=== PATIENT | female | born 1960 | race Caucasian/White ===

== ENCOUNTER 2018-03-18 15:34 | Emergency (ER) | payer OTHER ==
[~2018-03-18] VITALS: Ht 157.5 cm; Wt 74.8 kg
[~2018-03-18 15:34] MED LIST: ADVAIR 100-501 EACH INH; AUGMENTIN 875875 M1 PO; BIRTH CONTROL PO; COLACE100 MG PO; CYMBALTA; CYMBALTA PO; CYMBALTA60 MG PO; IBUPROFEN 800800 M1 PO; LEVOTHROID PO; OMNARIS; OMNARIS NS; VICODIN 5-5001 EACH PO; YAZ; YAZ PO; [UNRECOGNIZED DRUG - OTHER]
[2018-03-18] MEDS ORDERED: BRINTELLIX10 MG PO (15:42)
[2018-03-18 16:39] LABS: HEMATOCRIT 46.7 % (37.0-47.0); HEMOGLOBIN 15.4 gm/dL (12.0-15.0); MCH 31.8 pg (26.0-34.0); MCV 96.2 fL (80.0-100.0); MPV 8.7 fl. (7.2-11.1); RBC 4.86 mil/uL (4.20-5.00); RDW-CV 12.7 % (10.5-14.5); WBC 8.8 thou/uL (4.0-11.0)
[2018-03-18 16:42] LABS: CALCIUM 8.5 mg/dL (8.5-10.1); CREATININE 0.9 mg/dL (0.6-1.3); POTASSIUM 3.6 mmol/L (3.5-5.1)
[2018-03-18] MEDS ORDERED: ANTIVERT25 MG PO (17:00)
[2018-03-18] MEDS ORDERED: ZOFRAN 4 MG ORAL4 MG PO (17:00)
[2018-03-18 17:10] VITALS: BP 137/72
== END 2018-03-18 17:10 | disposition home or self-care (01) ==
LOC: M.ERS 15:34
PROVIDERS: Emergency Medicine Emergency Medical Services
DX: H81.13 Benign paroxysmal vertigo, bilateral (principal); F32.9 Major depressive disorder, single episode, unspecified

== ENCOUNTER → 2018-09-09 | Outpatient (CLI) | payer OTHER ==
[~2018-09-09] MED LIST changes: +ANTIVERT25 MG PO; +BRINTELLIX10 MG PO; +ZOFRAN 4 MG ORAL4 MG PO
== END ==
LOC: M.RAD 16:03
DX: Z12.31 Encounter for screening mammogram for malignant neoplasm of breast (principal)

== ENCOUNTER → 2019-04-15 | Outpatient (CLI) | payer OTHER ==
[2019-04-15 11:38] LABS: URINE BILIRUBIN NEGATIVE (Negative); URINE BLOOD TRACE (Negative); URINE CLARITY CLEAR; URINE COLOR YELLOW; URINE GLUCOSE-RANDOM NEGATIVE (Negative); URINE KETONES NEGATIVE (Negative); URINE LEUKOCYTES-REFLEX NEGATIVE (Negative); URINE NITRITE-REFLEX NEGATIVE (Negative); URINE PROTEIN NEGATIVE (Negative); URINE SPECIFIC GRAVITY 1.025 (1.005-1.030); URINE UROBILINOGEN 0.2 E.U./dl (0.2-1.0)
[2019-04-15 11:43] LABS: ABSOLUTE EOSINOPHILS 0.2 thou/uL (0.0-0.7); ABSOLUTE LYMPHOCYTES 1.6 thou/uL (0.8-5.3); ABSOLUTE MONOCYTES 0.4 thou/uL (0.0-1.2); ABSOLUTE NEUTROPHILS 3.7 thou/uL (1.6-8.1); BASOPHILS 0.8 %; EOSINOPHILS 3.2 %; HEMOGLOBIN 16.1 gm/dL (12.0-15.0); LYMPHOCYTES 27.2 %; MCH 31.5 pg (26.0-34.0); MCHC 32.8 g/dL (28.0-37.0); MONOCYTES 7.4 %; MPV 8.4 fl. (7.2-11.1); NUCLEATED RBCS 0 /100WBC; PLATELET COUNT* 311 thou/uL (150-400); POLYS 61.4 %; RDW-CV 12.3 % (10.5-14.5)
[2019-04-15 11:52] LABS: ALBUMIN 3.9 g/dL (3.4-5.0); ALKALINE PHOSPHATASE 78 U/L (46-116); ANION GAP 7 mmol/L (7-16); BUN 14 mg/dL (7-18); CALCIUM 9.2 mg/dL (8.5-10.1); CHLORIDE 102 mmol/L (98-107); CHOLESTEROL 227 mg/dL (<200); CO2 28 mmol/L (21-32); CREATININE 0.9 mg/dL (0.6-1.3); GLUCOSE 95 mg/dL (70-99); HDL CHOLESTEROL 44 mg/dL (>40); LDL CHOLESTEROL 153 mg/dL (<100); POTASSIUM 4.8 mmol/L (3.5-5.1); SGOT 40 U/L (15-37); SGPT 73 U/L (30-65); SODIUM 137 mmol/L (136-145); TC:HDL 5.2 Ratio (Not establshd); TOTAL BILIRUBIN 0.7 mg/dL (<0.1-1.0); TRIGLYCERIDE 152 mg/dL (<150); VLDL 30 mg/dL (<40)
[2019-04-15 11:54] LABS: SERUM ASSESSMENT Clear
[2019-04-15 23:07] LABS: LDL (DIRECT) CHOL 159 mg/dL (0-99)
== END ==
LOC: M.LAB 10:32
PROVIDERS: Family Medicine
DX: E03.9 Hypothyroidism, unspecified (principal); N39.0 Urinary tract infection, site not specified; E78.2 Mixed hyperlipidemia; L50.0 Allergic urticaria; K13.79 Other lesions of oral mucosa

== ENCOUNTER → 2019-06-01 | Outpatient (CLI) | payer OTHER ==
[2019-06-03 14:06] LABS: GLOBULIN TOTAL 3.6 g/dL (2.2-3.9); M-SPIKE Not Observed g/dL (Not Observed)
== END ==
LOC: M.LAB 07:40
PROVIDERS: Allergy & Immunology
DX: L50.9 Urticaria, unspecified (principal)

== ENCOUNTER → 2019-06-29 | Outpatient (CLI) | payer OTHER ==
[~2019-06-29] MED LIST changes: +ALDACTONE50 MG PO; +ALLEGRA ALLERGY60 MG PO; +DIPHENHIST50 MG PO; +METHYLPHENIDATE10 M7 PO; +PREDNISONE50 MG PO; +PROGESTERONE200 MG PO; +SPIRIVA INH; +VENTOLIN HFA 1818 GM INH
[2019-07-04 13:46] LABS: GLOBULIN TOTAL 3.5 g/dL (2.2-3.9); M-SPIKE Not Observed g/dL (Not Observed)
== END ==
LOC: M.LAB 11:27
PROVIDERS: Allergy & Immunology
DX: L50.8 Other urticaria (principal)

== ENCOUNTER 2019-06-30 13:02 | Emergency (ER) | payer OTHER ==
[~2019-06-30] VITALS: Ht 157.5 cm; Wt 73.9 kg
[~2019-06-30 13:02] MED LIST changes: -ALDACTONE50 MG PO; -ALLEGRA ALLERGY60 MG PO; -DIPHENHIST50 MG PO; -METHYLPHENIDATE10 M7 PO; -PREDNISONE50 MG PO; -PROGESTERONE200 MG PO; -SPIRIVA INH; -VENTOLIN HFA 1818 GM INH
[2019-06-30] MEDS ORDERED: VENTOLIN HFA 1818 GM INH (13:12)
[2019-06-30] MEDS ORDERED: ALDACTONE50 MG PO (13:12)
[2019-06-30] MEDS ORDERED: SPIRIVA INH (13:12)
[2019-06-30] MEDS ORDERED: ALLEGRA ALLERGY60 MG PO (13:12)
[2019-06-30] MEDS ORDERED: PROGESTERONE200 MG PO (13:13)
[2019-06-30] MEDS ORDERED: METHYLPHENIDATE10 M7 PO (13:13)
[2019-06-30] MEDS ORDERED: DIPHENHIST50 MG PO (16:06)
[2019-06-30] MEDS ORDERED: PREDNISONE50 MG PO (16:06)
[2019-06-30 17:12] VITALS: BP 95/57
== END 2019-06-30 17:13 | disposition home or self-care (01) ==
LOC: M.ERS 13:02
DX: R22.0 Localized swelling, mass and lump, head (principal); R21 Rash and other nonspecific skin eruption; T78.1XXA Other adverse food reactions, not elsewhere classified, initial encounter; F32.9 Major depressive disorder, single episode, unspecified; Z90.49 Acquired absence of other specified parts of digestive tract; Z91.010 Allergy to peanuts; Z91.018 Allergy to other foods; Y92.89 Other specified places as the place of occurrence of the external cause

== ENCOUNTER → 2019-09-19 | Outpatient (CLI) | payer OTHER ==
[~2019-09-19] MED LIST changes: +ALDACTONE50 MG PO; +ALLEGRA ALLERGY60 MG PO; +DIPHENHIST50 MG PO; +METHYLPHENIDATE10 M7 PO; +PREDNISONE50 MG PO; +PROGESTERONE200 MG PO; +SPIRIVA INH; +VENTOLIN HFA 1818 GM INH
== END ==
LOC: M.RAD 15:48
DX: Z12.31 Encounter for screening mammogram for malignant neoplasm of breast (principal); R07.89 Other chest pain

== ENCOUNTER → 2019-11-09 | Outpatient (CLI) | payer OTHER ==
[2019-11-09 10:58] LABS: ABSOLUTE BASOPHILS 0.1 thou/uL (0.0-0.2); ABSOLUTE EOSINOPHILS 0.1 thou/uL (0.0-0.7); ABSOLUTE LYMPHOCYTES 1.7 thou/uL (0.8-5.3); ABSOLUTE MONOCYTES 0.5 thou/uL (0.0-1.2); ABSOLUTE NEUTROPHILS 4.7 thou/uL (1.6-8.1); BASOPHILS 1.1 %; EOSINOPHILS 0.9 %; HEMATOCRIT 45.1 % (37.0-47.0); HEMOGLOBIN 15.2 gm/dL (12.0-15.0); LYMPHOCYTES 24.4 %; MCH 31.8 pg (26.0-34.0); MCHC 33.7 g/dL (28.0-37.0); MCV 94.4 fL (80.0-100.0); MONOCYTES 7.2 %; MPV 8.1 fl. (7.2-11.1); NUCLEATED RBCS 0 /100WBC; PLATELET COUNT* 308 thou/uL (150-400); POLYS 66.4 %; RBC 4.78 mil/uL (4.20-5.00)
[2019-11-09 11:10] LABS: ALBUMIN 3.8 g/dL (3.4-5.0); CALCIUM 8.4 mg/dL (8.5-10.1); POTASSIUM 4.4 mmol/L (3.5-5.1); TOTAL BILIRUBIN 0.8 mg/dL (<0.1-1.0); TOTAL PROTEIN 7.5 g/dL (6.4-8.2)
[2019-11-09 19:08] LABS: TESTOSTERONE 372 ng/dL (3-41)
== END ==
LOC: M.LAB 10:39
PROVIDERS: Obstetrics & Gynecology
DX: N95.1 Menopausal and female climacteric states (principal)

== ENCOUNTER → 2019-11-22 | Outpatient (CLI) | payer OTHER | LOC: M.RAD 08:46 | DX: M25.521 Pain in right elbow (principal) ==

== ENCOUNTER → 2019-12-09 | Outpatient (CLI) | payer OTHER ==
[2019-12-09 12:24] LABS: ABSOLUTE EOSINOPHILS 0.1 thou/uL (0.0-0.7); ABSOLUTE LYMPHOCYTES 1.8 thou/uL (0.8-5.3); ABSOLUTE MONOCYTES 0.5 thou/uL (0.0-1.2); ABSOLUTE NEUTROPHILS 3.8 thou/uL (1.6-8.1); BASOPHILS 0.7 %; EOSINOPHILS 1.3 %; HEMATOCRIT 44.9 % (37.0-47.0); LYMPHOCYTES 28.8 %; MCH 31.8 pg (26.0-34.0); MCHC 33.4 g/dL (28.0-37.0); MCV 95.3 fL (80.0-100.0); MONOCYTES 7.3 %; MPV 8.4 fl. (7.2-11.1); NUCLEATED RBCS 0 /100WBC; PLATELET COUNT* 279 thou/uL (150-400); POLYS 61.9 %; RBC 4.71 mil/uL (4.20-5.00); WBC 6.2 thou/uL (4.0-11.0)
[2019-12-09 12:41] LABS: ALBUMIN 3.9 g/dL (3.4-5.0); ALKALINE PHOSPHATASE 80 U/L (46-116); ANION GAP 8 mmol/L (7-16); BUN 13 mg/dL (7-18); CALCIUM 8.1 mg/dL (8.5-10.1); CHLORIDE 103 mmol/L (98-107); CHOLESTEROL 180 mg/dL (<200); CO2 27 mmol/L (21-32); CREATININE 0.8 mg/dL (0.6-1.3); GLUCOSE 93 mg/dL (70-99); HDL CHOLESTEROL 49 mg/dL (>40); LDL CHOLESTEROL 114 mg/dL (<100); POTASSIUM 4.1 mmol/L (3.5-5.1); SERUM ASSESSMENT Clear; SGOT 38 U/L (15-37); SGPT 72 U/L (30-65); SODIUM 138 mmol/L (136-145); TC:HDL 3.7 Ratio (Not establshd); TOTAL BILIRUBIN 0.7 mg/dL (<0.1-1.0); TOTAL PROTEIN 7.8 g/dL (6.4-8.2); TRIGLYCERIDE 89 mg/dL (<150); URIC ACID* 5.3 mg/dL (2.6-7.2); VLDL 18 mg/dL (<40)
[2019-12-09 13:34] LABS: ESR (SEDRATE) 0 mm/hr (0-30)
[2019-12-10 02:07] LABS: LDL (DIRECT) CHOL 133 mg/dL (0-99)
[2019-12-12 10:07] LABS: ANA INTERPRETATION Positive (Negative)
== END ==
LOC: M.LAB 10:49
PROVIDERS: Family Medicine
DX: E03.9 Hypothyroidism, unspecified (principal); Z13.820 Encounter for screening for osteoporosis; Z00.00 Encounter for general adult medical examination without abnormal findings; M25.50 Pain in unspecified joint; Z91.018 Allergy to other foods

== ENCOUNTER → 2019-12-19 | Outpatient (CLI) | payer OTHER | LOC: M.LAB 13:52 | DX: R94.5 Abnormal results of liver function studies (principal) ==

== ENCOUNTER → 2020-04-12 | Outpatient (CLI) | payer OTHER ==
[2020-04-12 07:48] LABS: ABSOLUTE BASOPHILS 0.1 thou/uL (0.0-0.2); ABSOLUTE EOSINOPHILS 0.1 thou/uL (0.0-0.7); ABSOLUTE LYMPHOCYTES 1.7 thou/uL (0.8-5.3); ABSOLUTE MONOCYTES 0.4 thou/uL (0.0-1.2); ABSOLUTE NEUTROPHILS 5.1 thou/uL (1.6-8.1); BASOPHILS 0.8 %; EOSINOPHILS 1.9 %; HEMATOCRIT 44.9 % (37.0-47.0); HEMOGLOBIN 15.4 gm/dL (12.0-15.0); LYMPHOCYTES 23.3 %; MCH 32.8 pg (26.0-34.0); MCHC 34.2 g/dL (28.0-37.0); MCV 95.9 fL (80.0-100.0); MONOCYTES 5.3 %; MPV 8.5 fl. (7.2-11.1); NUCLEATED RBCS 0 /100WBC; PLATELET COUNT* 304 thou/uL (150-400); POLYS 68.7 %; RBC 4.68 mil/uL (4.20-5.00); WBC 7.4 thou/uL (4.0-11.0)
[2020-04-12 08:02] LABS: ALBUMIN 3.9 g/dL (3.4-5.0); CALCIUM 8.3 mg/dL (8.5-10.1); CREATININE 1.1 mg/dL (0.6-1.3); POTASSIUM 3.8 mmol/L (3.5-5.1); TOTAL BILIRUBIN 0.5 mg/dL (<0.1-1.0); TOTAL PROTEIN 7.5 g/dL (6.4-8.2)
[2020-04-13 18:06] LABS: TESTOSTERONE 152 ng/dL (3-41)
== END ==
LOC: M.LAB 07:29
PROVIDERS: ATTEND Obstetrics & Gynecology
DX: N95.1 Menopausal and female climacteric states (principal)

== ENCOUNTER → 2020-10-23 | Outpatient (CLI) | payer OTHER | LOC: M.RAD 15:24 | PROVIDERS: ATTEND Family Medicine | DX: Z12.31 Encounter for screening mammogram for malignant neoplasm of breast (principal) ==

== ENCOUNTER → 2020-11-30 | Outpatient (CLI) | payer OTHER ==
[2020-12-01 05:07] LABS: HEPATITIS B SURFACE AG Negative (Negative)
[2020-12-04 19:59] LABS: RUBELLA IgG ANTIBODY* 21.5
== END ==
LOC: M.LAB 13:24
PROVIDERS: ATTEND Family Medicine
DX: Z02.0 Encounter for examination for admission to educational institution (principal); M47.816 Spondylosis without myelopathy or radiculopathy, lumbar region; M47.812 Spondylosis without myelopathy or radiculopathy, cervical region; M19.041 Primary osteoarthritis, right hand; M25.762 Osteophyte, left knee; M25.761 Osteophyte, right knee; M25.561 Pain in right knee; M25.562 Pain in left knee; G89.29 Other chronic pain; M79.641 Pain in right hand; M54.2 Cervicalgia; M54.6 Pain in thoracic spine; M54.5 Low back pain

== ENCOUNTER → 2020-12-13 | Outpatient (CLI) | payer OTHER | LOC: M.MRI 12-12 11:47 | PROVIDERS: ATTEND Family Medicine | DX: M50.31 Other cervical disc degeneration, high cervical region (principal); M47.812 Spondylosis without myelopathy or radiculopathy, cervical region; M25.78 Osteophyte, vertebrae; M48.02 Spinal stenosis, cervical region; M51.34 Other intervertebral disc degeneration, thoracic region; M47.816 Spondylosis without myelopathy or radiculopathy, lumbar region; M51.37 Other intervertebral disc degeneration, lumbosacral region ==

== ENCOUNTER → 2021-01-04 | Outpatient (CLI) | payer OTHER ==
[2021-01-04 10:32] LABS: ABSOLUTE BASOPHILS 0.1 thou/uL (0.0-0.2); ABSOLUTE EOSINOPHILS 0.3 thou/uL (0.0-0.7); ABSOLUTE LYMPHOCYTES 1.9 thou/uL (0.8-5.3); ABSOLUTE MONOCYTES 0.5 thou/uL (0.0-1.2); ABSOLUTE NEUTROPHILS 4.9 thou/uL (1.6-8.1); BASOPHILS 0.8 %; EOSINOPHILS 3.7 %; HEMATOCRIT 47.2 % (37.0-47.0); HEMOGLOBIN 15.6 gm/dL (12.0-15.0); LYMPHOCYTES 24.8 %; MCH 31.6 pg (26.0-34.0); MCHC 33.1 g/dL (28.0-37.0); MCV 95.5 fL (80.0-100.0); MONOCYTES 7.1 %; MPV 7.6 fl. (7.2-11.1); NUCLEATED RBCS 0 /100WBC; PLATELET COUNT* 323 thou/uL (150-400); POLYS 63.6 %; RBC 4.95 mil/uL (4.20-5.00); RDW-CV 12.5 % (10.5-14.5); WBC 7.7 thou/uL (4.0-11.0)
== END ==
LOC: M.LAB 10:16
PROVIDERS: ATTEND Nurse Practitioner
DX: L24.9 Irritant contact dermatitis, unspecified cause (principal); E03.9 Hypothyroidism, unspecified; R21 Rash and other nonspecific skin eruption; L08.89 Other specified local infections of the skin and subcutaneous tissue

== ENCOUNTER → 2021-01-25 | Outpatient (CLI) | payer OTHER ==
[2021-01-25 14:08] LABS: ALBUMIN 3.8 g/dL (3.4-5.0); CALCIUM 9.2 mg/dL (8.5-10.1); TOTAL BILIRUBIN 0.5 mg/dL (<0.1-1.0); TOTAL PROTEIN 7.9 g/dL (6.4-8.2)
== END ==
LOC: M.MRI 12:30
PROVIDERS: ATTEND Family Medicine
DX: M62.838 Other muscle spasm (principal); H53.9 Unspecified visual disturbance; R29.898 Other symptoms and signs involving the musculoskeletal system; Z82.0 Family history of epilepsy and other diseases of the nervous system

== ENCOUNTER → 2021-02-04 | Outpatient (CLI) | payer OTHER | LOC: M.LAB 12:02 | PROVIDERS: ATTEND Nurse Practitioner | DX: E03.9 Hypothyroidism, unspecified (principal); R79.89 Other specified abnormal findings of blood chemistry ==

== ENCOUNTER → 2021-03-06 | Outpatient (CLI) | payer OTHER ==
[2021-03-06 23:06] LABS: TESTOSTERONE 20 ng/dL (3-67)
== END ==
LOC: M.LAB 08:40
PROVIDERS: ATTEND Obstetrics & Gynecology
DX: E03.9 Hypothyroidism, unspecified (principal)